=== PATIENT | male | born 2000 | race Caucasian/White ===

== ENCOUNTER 2019-11-30 17:58 | Emergency (ER) | payer SELFPAY ==
[2019-11-30] MEDS ORDERED: Lidocaine 2% w/Epinephrine 1:200K 20 ML VIAL ONE (18:14)
[2019-11-30] MEDS ORDERED: Amoxicillin/Potassium Clav 875 MG TAB ONE (18:26)
== END 2019-11-30 18:30 | disposition home or self-care (01) ==
LOC: MADERS 17:58
DX: K08.89 Other specified disorders of teeth and supporting structures (principal)
CPT/HCPCS: 64400